=== PATIENT | male | born 1970 | race Caucasian/White ===

== ENCOUNTER 2023-08-04 21:45 | Emergency (ER) | payer MEDICARE, MEDICAID | END 2023-08-05 00:50 | disposition left against medical advice (07) | LOC: CSHERS 21:45 | DX: Z53.21 Procedure and treatment not carried out due to patient leaving prior to being seen by health care provider (principal) ==

== ENCOUNTER 2023-08-07 18:41 | Emergency (ER) | payer MEDICARE, MEDICAID ==
[2023-08-07] MEDS ORDERED: Ibuprofen 200 MG TAB ONE (19:34)
== END 2023-08-07 19:50 | disposition home or self-care (01) ==
LOC: CSHERS 18:41
DX: S40.212A Abrasion of left shoulder, initial encounter (principal); F17.220 Nicotine dependence, chewing tobacco, uncomplicated; W54.0XXA Bitten by dog, initial encounter
CPT/HCPCS: 99283